=== PATIENT | male | born 1975 ===

== ENCOUNTER → 2023-11-11 07:00 | Outpatient (REF) | payer OTHER, SELFPAY ==
[2023-11-11 09:24] LABS: Glycohemoglobin (HgbA1c) 5.8 % (4.0-5.6)
[2023-11-11 10:12] LABS: ALT (SGPT) 19 U/L (0-50); AST (SGOT) 25 U/L (17-59); Albumin 4.6 g/dl (3.5-5.0); Alkaline Phosphatase 64 U/L (38-126); Blood Urea Nitrogen 18 mg/dl (9-20); Calcium 9.6 mg/dl (8.4-10.2); Carbon Dioxide 26 mmol/L (22-30); Chloride 103 mmol/L (98-107); Glucose 98 mg/dl (70-99); HDL Cholesterol 43 mg/dl; Potassium 4.1 mmol/L (3.5-5.1); Sodium 139 mmol/L (135-145); Total Bilirubin 0.6 mg/dl (0.2-1.3); Total Protein 7.3 g/dl (6.3-8.2); Triglyceride 286 mg/dl (10-149); Very Low Density Lipoprotein 57 mg/dl (0-30); eGFR > 60.00
[2023-11-11 11:02] LABS: LDL Cholesterol, Calculated 91 mg/dl; Total Cholesterol 191 mg/dl (50-199)
== END ==
LOC: CLINIC 07:00
PROVIDERS: ATTENDING PHYSICIAN Nurse Practitioner Adult Health
DX: R73.03 Prediabetes (principal); E78.2 Mixed hyperlipidemia
CPT/HCPCS: 36415; 80053; 80061; 83036

== ENCOUNTER → 2024-03-16 07:21 | Outpatient (REF) | payer OTHER, SELFPAY ==
[2024-03-16 08:39] LABS: ALT (SGPT) 20 U/L (0-50); AST (SGOT) 24 U/L (17-59); Albumin 4.7 g/dl (3.5-5.0); Alkaline Phosphatase 61 U/L (38-126); Blood Urea Nitrogen 14 mg/dl (9-20); Calcium 9.8 mg/dl (8.4-10.2); Carbon Dioxide 27 mmol/L (22-30); Chloride 103 mmol/L (98-107); Glucose 110 mg/dl (70-99); Potassium 4.5 mmol/L (3.5-5.1); Sodium 142 mmol/L (135-145); Total Bilirubin 0.7 mg/dl (0.2-1.3); Total Cholesterol 224 mg/dl (50-199); Total Protein 7.1 g/dl (6.3-8.2); Triglyceride 361 mg/dl (10-149); Very Low Density Lipoprotein 72 mg/dl (0-30); eGFR > 60.00
[2024-03-16 09:27] LABS: Glycohemoglobin (HgbA1c) 5.7 % (4.0-5.6)
[2024-03-16 09:41] LABS: HDL Cholesterol 38 mg/dl; LDL Cholesterol, Calculated 114 mg/dl
== END ==
LOC: CLINIC 07:21
PROVIDERS: ATTENDING PHYSICIAN Nurse Practitioner Adult Health
DX: R73.03 Prediabetes (principal); E78.2 Mixed hyperlipidemia
CPT/HCPCS: 36415; 80053; 80061; 83036

== ENCOUNTER → 2024-11-11 06:57 | Outpatient (REF) | payer OTHER, SELFPAY ==
[2024-11-11 08:55] LABS: ALT (SGPT) 23 U/L (0-50); AST (SGOT) 25 U/L (17-59); Albumin 4.3 g/dl (3.5-5.0); Alkaline Phosphatase 56 U/L (38-126); Blood Urea Nitrogen 12 mg/dl (9-20); Calcium 9.6 mg/dl (8.4-10.2); Carbon Dioxide 30 mmol/L (22-30); Chloride 104 mmol/L (98-107); Glucose 109 mg/dl (70-99); HDL Cholesterol 39 mg/dl; LDL Cholesterol, Calculated 112 mg/dl; Potassium 4.2 mmol/L (3.5-5.1); Sodium 142 mmol/L (135-145); Total Bilirubin 0.7 mg/dl (0.2-1.3); Total Cholesterol 218 mg/dl (50-199); Total Protein 6.9 g/dl (6.3-8.2); Triglyceride 337 mg/dl (10-149); Very Low Density Lipoprotein 67 mg/dl (0-30); eGFR > 60.00
[2024-11-11 12:18] LABS: Glycohemoglobin (HgbA1c) 5.7 % (4.0-5.6)
== END ==
LOC: CLINIC 06:57
PROVIDERS: ATTENDING PHYSICIAN Nurse Practitioner Adult Health
DX: R73.03 Prediabetes (principal); E78.2 Mixed hyperlipidemia
CPT/HCPCS: 36415; 80053; 80061; 83036

== ENCOUNTER → 2025-05-12 07:10 | Outpatient (REF) | payer OTHER, SELFPAY ==
[2025-05-12 08:42] LABS: HDL Cholesterol 41 mg/dl; LDL Cholesterol, Calculated 120 mg/dl; Very Low Density Lipoprotein 61 mg/dl (0-30)
[2025-05-12 10:25] LABS: Glycohemoglobin (HgbA1c) 5.8 % (4.0-5.9)
== END ==
LOC: CLINIC 07:10
PROVIDERS: ATTENDING PHYSICIAN Nurse Practitioner Adult Health
DX: R73.03 Prediabetes (principal); E78.2 Mixed hyperlipidemia
CPT/HCPCS: 80061; 83036